=== PATIENT | male | born 1965 | race Caucasian/White ===

== ENCOUNTER 2016-04-02 08:06 | Inpatient (IN) | payer OTHER ==
[~2016-04-02] VITALS: Ht 177.8 cm; Wt 121.4 kg
[2016-04-02] VITALS (11 sets, daily range): BP systolic 111–133; BP diastolic 64–78; PULSE 47–65; RESP 10–20; O2SAT 95–99
--- NOTE | 2016-04-02 06:46 | PCM.HPANE ---
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 Admitting Provider: Attending Provider:Jesse Vann MD Primary Care Physician:Berny Abel MD Other Provider:Lynette Rodriguezingham Anesthesia Reason for Visit Left Knee Arthritis LEFT KNEE ARTHRITIS Ht/WT & BMI Height (Feet): 5 Height (Inches): 10 Weight (Kilograms): 122.47 Body Mass Index 38.00 Allergies Coded Allergies: No Known Allergies (Verified Allergy, Unknown, 04/19/14) Past Anesthesia History Anesthesia History: Denies:: Abnormal Airway, Anesthesia Reactions, Difficult Intubation, Fam Anesthesia Reaction, Fam Malignant Hypertherm, Malignant Hyperthermia Diabetes History Hx Diabetes?: No MRSA MRSA: No Medications Hypertension Medication: No Home Meds Incl Beta Car: No Reported Medications Multivitamin (Multi Vitamin Daily)1 Each Tablet1 Each PO DAILY 30 Days Ref 0 04/02/16 Simvastatin 20 Mg [id number] Mg PO HS Ref 0 03/29/16 Discontinued Reported Medications Simvastatin 20 Mg [id number] Mg PO HS 30 Days Ref 0 04/16/14 History HEENT History: Denies:: Abnormal Airway Cataracts Difficult Intubation Dysphagia Glaucoma Hearing Problem Sinus Problem TMJ Hx of Heart Problems?: Yes Cardiovascular History: Denies:: AICD Edema Heart Murmur Hypertension (hyperlipidemia) Irregular Heartbeat Pacemaker Peripheral Vascular Rheumatic Fever Thrombophlebitis Hx of Respiratory Problem?: No Respiratory History: Denies:: Asthma COPD Emphysema Oxygen Administration Pneumonia Tuberculosis Use of C-PAP Machine Use of Inhalers / NEBS Hx Neurologic Problems?: No Neurological History: Denies:: CVA Headaches Multiple Sclerosis Parkinson's Disease Seizures Hx of GI Problems?: No Gastrointestinal History: Positive for:: Rectal Bleeding (hx of rectal polyp) Denies:: Gall Bladder Disease Gastroesphageal Reflux Heartburn Hx of Problems?: No Genitourinary History: Denies:: Kidney Stones Urinary Tract Infection Male Hx: Denies:: Prostate Problems Skin History: Denies:: History Skin Disorders? Pressure Ulcers Hx Musculoskeletal Problems?: Yes Musculoskeletal History: Positive for:: Musculoskeletal Trauma (left knee current admission problem) Osteoarthritis Denies:: Back Injury Fibromyalgia Joint Replacement Hx of Psycho/Social Problems?: No Psycho Social History: Denies:: Anxiety Hx Depression Hx Surgeries?: Yes (arthroscopic left knee) Hx Any Other Health Problems?: Yes Other History: Denies:: Cancer Thyroid Disease History Blood Transfusions: Positive for:: Accept Blood Products? Denies:: Blood Transfusions Hx Diabetes: No Hx Alcohol Use: Yes (occasional)Hx Substance Use: No Smoking Status: Never Smoker Have You Smoked inLast 12 mo: No Stop/Bang S-Snoring: Do You Snore Loudly: No T-Tired: feel tired, fatigued: No O-Obsered: Observed not breath: No P-Blood Pressure: treated: No B- Body Mass Index > 35 kg/m2: Yes A- Age over 50: Yes N- Neck Large Circumference: No G- Gender Male: Yes DWAYNE Total Score: 3 DWAYNE Risk Assessment: Low Risk, <3 Yes Risk Assessment Category Category 1A: Patient has history of documented sleep apnea, and HAS NOT received any narcotic, sedative or anesthesia administration during this stay. Category 1B: Patient has history of documented sleep apnea, and HAS received any narcotic , sedative or anesthesia administration during this stay Category 2: Patient has SUSPECTED Obstructive Sleep Apnea, and HAS received any narcotic , sedative or anesthesia administration during this stay. Category 3: Patient has SUSPECTED Obstructive Sleep Apnea and HAS NOT received narcotic, sedative or anesthesia administration during this stay. Category 4: Outpatient in Procedural Areas with known sleep apnea or who screen positive for High Risk via the STOP/BANG questionnaire. Exam Exam General Appearance: Alert, Oriented X3, Cooperative, No Acute Distress HEENT/AIRWAY: MP 2 Lungs: Clear to Auscultation, Normal Air Movement Heart: Exam Unremarkable, Regular Rate/Rhythm, No Murmurs/Rubs/Gallops Plan Impression Patient chart reviewed, patient interviewed and anesthestic plan with risks, benefits, and alternatives discussed, and informed consent obtained. ASA Physical Status: ASA2 Mod Systemic Disease Anesthetic Plan: Regional Block, SAB Bene/Risks/Altern/Consents: Yes HP Complete Prior to Induction: Yes Dioni Cook MD Apr 02, 2016 06:46
[~2016-04-02 08:06] MED LIST: Bupivacaine Liposome 1.3% 20 mL Inj INFILTRATE SCH; CeFAZolin Inj 3 Gm/ D5W 50 mL Bag IV ONE; Lactated Ringer's 1,000 ML IV ONE; SIMV20TA4 PO; Vancomycin Inj 1,000 MG in IV Premix 1 EACH IV ONE
[2016-04-02] MEDS ORDERED: MULT-1018 PO (08:26)
[2016-04-02] MEDS ORDERED: TRANEXAMIC ACID IV ONE ×2 (09:35→09:45)
[2016-04-02] MEDS ORDERED: SODIUM CHLORIDE 0.9% IV ONE (09:45)
[2016-04-02] MEDS ORDERED: Gentamicin 40 mg/mL 2 mL Inj IRRIGATION ONE (11:53)
[2016-04-02] MEDS ORDERED: Bupivacaine-MPF 0.25%/EPI 30 mL Inj ARTICULAR ONE (11:54)
[2016-04-02] MEDS ORDERED: Bupivacaine Liposome 1.3% 20 mL Inj INFILTRATE ONE (11:55)
[2016-04-02] MEDS ORDERED: Lactated Ringer's 1,000 ML IV SCH (12:34)
[2016-04-02] MEDS ORDERED: Lactated Ringer's 500 ML IV PRN (12:34)
[2016-04-02] MEDS ORDERED: hydrALAZINE 20 mg/mL Inj IVPUSH PRN (12:35)
[2016-04-02] MEDS ORDERED: Dexamethasone 4 mg/mL Inj IVPUSH PRN (12:35)
[2016-04-02] MEDS ORDERED: fentaNYL-PF 50 mCg/mL 2 mL Inj IVPUSH PRN (12:35)
[2016-04-02] MEDS ORDERED: Labetalol 5 mg/mL 4 mL Inj IV PRN (12:35)
[2016-04-02] MEDS ORDERED: Phenylephrine 10,000 mCg/mL Inj IVPUSH PRN (12:35)
[2016-04-02] MEDS ORDERED: Atropine 0.4 mg/mL Inj IVPUSH PRN (12:35)
[2016-04-02] MEDS ORDERED: Ondansetron 2 mg/mL 2 mL Inj IVPUSH PRN (12:35)
[2016-04-02] MEDS ORDERED: HYDROmorphone 1 mg/mL Inj IVPUSH PRN (12:35)
[2016-04-02] MEDS ORDERED: MetoCLOpramide 5 mg/mL 2 mL Inj IVPUSH PRN (12:35)
[2016-04-02] MEDS ORDERED: EPHEDrine Sulfate 50 mg/mL Inj IVPUSH PRN (12:35)
[2016-04-02] MEDS ORDERED: fentaNYL-PF 50 mCg/mL 2 mL Inj ONE (13:24)
--- NOTE | 2016-04-02 13:35 | PCM.ANEP1 ---
Post Anesthesia Phase 1 PACU Phase 1 Assessment Vital Signs Vital Signs Date Time Temp Pulse Resp B/P Pulse Ox O2 Delivery O2 Flow Rate FiO2 04/02/16 13:30 50 15 116/69 98 Room Air 04/02/16 13:25 51 15 114/69 97 Room Air 04/02/16 13:21 15 98 04/02/16 13:19 36.4 51 10 114/65 97 Room Air 04/02/16 08:55 36.0 55 18 133/72 95 Room Air Anesthetic Administered: SAB Level of Alertness: Awake, talking BARRY's with Equal Strength: No Pain: No Pain Scale Score: 0 Oxygen Delivery: Room Air Lungs: Clear to Auscultation, Normal Air Movement Dermatome Level: T12 (Symphysis Pubis) Dioni Cook MD Apr 02, 2016 13:35
--- NOTE | 2016-04-02 13:46 | DRSVH ---
PROCEDURE: X-RAY LEFT KNEE, ONE OR TWO VIEWS ([id number]) INDICATIONS: CHECK ALIGNMENT TECHNIQUE: 2 view(s) of the knee acquired. COMPARISON: None. FINDINGS: Bones: Patient is status post left knee joint arthroplasty. Hardware components are in expected pos itions. Visualized bony structures are intact. Soft tissues: Overlying postoperative changes are noted. IMPRESSION: Expected postsurgical change for left knee arthroplasty. Dictated by: Fernanda Griffin MD, PhD on 04/02/2016 at 13:44 Approved by: Fernanda Griffin MD, PhD on 04/02/2016 at 13:44
[2016-04-02] MEDS ORDERED: Lactated Ringer's 1,000 ML IV ONE (13:48)
--- NOTE | 2016-04-02 14:03 | NUR ---
Arrived on Unit Patient arrived on floor from PACU in bed in stable condition. A&Ox3. RA. VSS. Dressing CDI. HemoVac clamped until 1800. Patient reported 6/10 knee pain. 10 mg Oxycodone and 50 mg of Vistaril given. 30 mg of Toradol given with patient increasing to 8/10. Denies nausea. Patient orientated to call light, bed, and telephone. at bedside. Call light and tray table within reach. Will continue to monitor patient hourly.
--- NOTE | 2016-04-02 14:05 | PCM.ANEP2 ---
Post Anesthesia Evaluation ASA/CMS Post Anesthesia VS in Patient's Normal Range?: Yes Resp Stable; Airway Patent?: Yes CV Function & Hydration Stable: Yes Mental Status Recovered?: Yes Pain control Satisfactory?: Yes N/V Control Satisfactory?: Yes Dioni Cook MD Apr 02, 2016 14:05
[2016-04-02] MEDS ORDERED: HYDROcodone-APAP 5-325 mg Tablet PO PRN (14:25)
[2016-04-02] MEDS ORDERED: Ondansetron 2 mg/mL 2 mL Inj IV PRN (14:25)
[2016-04-02] MEDS ORDERED: Sodium Biphos-Phos 133 mL Enema RECTAL PRN (14:25)
[2016-04-02] MEDS ORDERED: LORazepam 0.5 mg Tablet PO PRN (14:25)
[2016-04-02] MEDS ORDERED: Magnesium Hydroxide 10 mL Oral Concentration PO PRN (14:25)
[2016-04-02] MEDS ORDERED: Ondansetron 8 mg ODT Tablet PO PRN (14:25)
[2016-04-02] MEDS ORDERED: MetoCLOpramide 5 mg/mL 2 mL Inj IV PRN (14:25)
[2016-04-02] MEDS ORDERED: diphenhydrAMINE 25 mg Capsule PO PRN (14:25)
[2016-04-02] MEDS ORDERED: Alum-Mag Hydrox-Simeth 30 mL Suspension PO PRN (14:25)
[2016-04-02] MEDS: hydrOXYzine Pamoate 25 mg Capsule PO PRN ×2 (14:35→19:14)
[2016-04-02] MEDS: Lactated Ringer's 1,000 ML IV SCH (14:37)
--- NOTE | 2016-04-02 16:33 | OP ---
[address] [address] OPERATIVE REPORT PATIENT: JEREMIAH PEREZ : 1965 MR#: [id number] ADMIT: 04/02/2016 JOB ID: [id number] DATE OF SURGERY: 04/02/2016 PREOPERATIVE DIAGNOSIS(ES): Severe arthritis, left knee. POSTOPERATIVE DIAGNOSIS(ES): Severe arthritis, left knee. PROCEDURE: Total knee arthroplasty. SURGEON: Jesse Vann MD. MECHANICAL TEST ENGINEER: Roma Kraus PA-C. COMPLICATIONS: None. INDICATIONS: This gentleman has had severe progressive osteoarthritis symptoms uncontrolled by conservative treatment techniques. He elects for total knee arthroplasty. He understands and accepts the potential for risks and complications which include but are not limited to infection, thromboembolic, neurovascular events, as well as potential for implant failure. Understanding these, he wishes to proceed. Phlebotomist Supervisor/Instructor was required due to the major complexity of the operation. PROCEDURE IN DETAIL: The patient was prepped and draped in the usual sterile fashion. An anteromedial approach was made to the knee. Dissection was carried down. Medial patellar osteophyte was removed and the patella was examined and was noted to be in excellent condition. Based on the [place] data, the patient's young age and potential for patellar complications, it was elected not to resurface the patella. A drill hole was placed in the distal femur and the 5 degree valgus distal femoral cut was made. Bone fragments were removed. The tibia was cut with the extramedullary tool. All meniscal tissue and osteophytes were removed from the knee. The femoral component was sized to a D chamfer cutting block, fixed in appropriate position of rotation and drill holes and chamfer cuts were made. The tibia was sized to a G tibia. Trial reductions were performed and a 10 mm polyethylene was chosen. Excellent tracking. Soft tissue balance was achieved. Excellent tracking was achieved with a medial congruent polyethylene which was chosen as the final polyethylene. Tibia was prepared in standard fashion. Careful assessment of the knee removing all debris and osteophytes followed by pressurized lavage followed by cementation of the components. Excess cement was removed during the curing process. Cut surfaces had been injected with Exparel. The knee was lavaged with sterile irrigant and then lavaged with a dilute Betadine solution. The patellar articular cartilage was protected from this. Pressurized cementation of the components ensued. Excess cement was removed during the curing process. Final construct assembled and polyethylene snapped securely into place. Knee held in full while the cement cured. Excess cement removed from the knee. Wounds irrigated with sterile irrigant. Deep Hemovac drain left. Tourniquet let down. Hemostasis achieved. Deep closure with #2 Quill deep followed by 2-0 Vicryl, 3-0, and a 4-0 intracuticular stitch. Patient tolerated the procedure well. There were no complications.
[2016-04-02] MEDS: CeFAZolin Inj 3 GM in Dextrose 5% 50 ML IV SCH (20:04)
[2016-04-02] MEDS ORDERED: Vancomycin Inj 1,750 MG in Dextrose 5% 500 ML IV ONE (23:00)
[2016-04-03 00:14] VITALS: BP 123/66; PULSE 72; RESP 20; O2SAT 93
[2016-04-03] MEDS: hydrOXYzine Pamoate 25 mg Capsule PO PRN ×4 (01:42→20:50)
[2016-04-03] MEDS: CeFAZolin Inj 3 GM in Dextrose 5% 50 ML IV SCH (03:31)
[2016-04-03 03:58] VITALS: BP 131/74; PULSE 62; RESP 20; O2SAT 95
[2016-04-03 04:22] VITALS: BP 107/64; PULSE 80; RESP 20; O2SAT 94
--- NOTE | 2016-04-03 04:45 | NUR ---
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 Had OXycodone early in shift. Prophalactic for LE pain. Second dose of IV routine Toradol ordered and given w/ excellent effect. Given only 1/2 dose of oxycodone in the early hours. Third and last dose of Toradol given. No pain at this time. ICE to extremity for shift. Good cms to LLE. No numbness or tingling per pt. Hemovac putting out small amt of SS fluid. Slept all of night. Continue current care plan.
[2016-04-03 05:59] LABS: BASOPHILS % (AUTO) 0.1 % (0-3); EOSINOPHILS % (AUTO) 1.1 % (0-5); MONOCYTES % (AUTO) 9.9 % (4-12); Mean Corpuscular Hemoglobin 29.4 pg (27.0-35.0); NEUTROPHILS % (AUTO) 74.5 % (40-74); Platelet Count 182 bil/L (150-400)
--- NOTE | 2016-04-03 06:33 | PCM.PNORTH ---
Subjective Date of Service: Apr 03, 2016 Visit Information: Reason for Visit Left Knee Arthritis Surgery/Surgery Date L TKA 04/02/16 Post-Op Day # Date of Admission: Apr 02, 2016 at 13:32 Hospital Day # Subjective Palpation awake and alert and sitting up in bed. No complaints of pain at this time. Discussed usual course of events with patient and timing regarding discharge to home on her before postop day 3. Encouraged patient to participate fully with physical therapy. Patient indicates that he has arranged outpatient physical therapy to begin on 04/09/2016. Patient takes no chronic pain medications prior to this seizure by his report. Patient indicates he is otherwise healthy and working prior to the surgery. Postop General: No Complaints, No Shortness of Breath, No Chest Pain, Good Appetite Pain Management: PO Objective Exam Objective Orientation: Alert and oriented 3 and pleasant. Dressing: Interoperative dressing clean dry and intact. Wound: Wound not observed today. Compartments: Calf and thigh are soft and nontender. Mobility/sensation: Toe wiggle and sensation are intact to left lower extremity distally. Abduction wedge: None CARMEN hose: None Huddleston: In place and working Drain: In place and working Gait: No gait yet with physical therapy as of this time. Vital Signs and I/O Vital Sign - Last Date Time Temp Pulse Resp B/P Pulse Ox O2 Delivery O2 Flow Rate FiO2 04/03/16 04:22 37.7 80 20 107/64 94 Room Air Intake and Output 04/02/16 04/02/16 04/03/16 Cumulative From/Thru 15:00 23:00 07:00 03/29/16 11:42 - 04/03/16 06:09 Intake Total 1420 ml 800 ml 1619 ml 3839 ml Output Total 950 ml 430 ml 1420 ml 2800 ml Balance 470 ml 370 ml 199 ml 1039 ml Intake Oral 800 ml 400 ml 1200 ml IV Total 1420 ml 1219 ml 2639 ml Output Urine Total 900 ml 400 ml 1300 ml 2600 ml Drainage Total 30 ml 120 ml 150 ml Estimated Blood Loss 50 ml 50 ml Lab & Micro Results Laboratory Tests Test 04/03/16 05:40 White Blood Count 7.0th/mm3 (3.8-10.1) Red Blood Count 4.46mil/mm3 (4.40-5.80) Hemoglobin 13.1g/dL (13.8-17.2) Hematocrit 38.8% (41.0-50.0) Mean Corpuscular Volume 87.0fL (81-100) Mean Corpuscular Hemoglobin 29.4pg (27.0-35.0) Mean Corpuscular Hemoglobin Concent 33.8% (32.0-37.0) Red Cell Distribution Width 12.8% (12.3-15.4) Platelet Count 182bil/L (150-400) Neutrophils (%) (Auto) 74.5% (40-74) Lymphocytes (%) (Auto) 14.1% (14-46) Monocytes (%) (Auto) 9.9% (4-12) Eosinophils (%) (Auto) 1.1% (0-5) Basophils (%) (Auto) 0.1% (0-3) Result Diagram: 04/03/16 0540 General Appearance: Alert, Oriented X3, Cooperative, No Acute Distress Extremities: No Compartment Syndrom Noted, Thigh & Calf Soft/Nontender Postop Sensory Motor: Distal Motor Intact, Movement in Toes, Distal Sensation Intact SURGICAL WOUND : Drain Location Body Site: Knee Wound Drainage Type: Hemovac Activity: Activity per PT, Ambulate with PT (weightbearing as tolerated in the left lower extremity using front wheeled walker.) Catheters: Urethral 2 Way Huddleston Assessment & Plan Impression Patient is a otherwise healthy 50-year-old male who has been working prior to this hospitalization for an elective left total knee. Anticipate patient will perform well physical therapy and achieved discharge on her before postop day 3. Problems: Plan Postop day # 1 from left total knee arthroplasty performed on 04/02/[address] Jesse Vann. Weight bearing status: Weightbearing as tolerated on left lower extremity. Mobility aid: Front wheeled walker Immobilization: None Precautions: No additional precautions Physical therapy: Continue formal physical therapy for mobility, gait and safety. Please evaluate patient's 4 wheeled walker for efficacy. I have advised patient he should start with front wheeled walker initially. Outpatient physical therapy is arranged to begin on 04/09/2016. Pain control: Continue by mouth pain medication as needed. Please avoid IV pain medication. DVT prophylaxis: ASA 325 mg EC by mouth daily for DVT prophylaxis. Wound care: Keep wound dressing clean dry and intact. Infectious DZ: None Huddleston: Huddleston catheter in place. Please discontinue Huddleston catheter today on postop day 1. May weight toe after first PT session if necessary. Dressing: Interoperative dressing is clean dry and intact. This will be changed on postop day #2 Drain: Interoperative drain in place and working. Please discontinue at 24 hours postop. Abduction wedge: None CARMEN tijerina: Bilateral. Apply left lower extremity. After dressing change. Nursing communication: Please discontinue Huddleston today on postop day 1 and discontinue wound drain 24 hours postop. 2-week follow-up: Follow-up in 2 weeks at [facility] orthopedic clinic with mid-level provider on prearranged appointment for wound check and suture removal. 6-week follow-up: Follow-up in 6 weeks at [facility] orthopedic clinic with Dr. Jesse Vann with left two-view knee x-rays on arrival. Discharge plan: Anticipate discharge on a before postop day 3 to home with family has caregivers. VTE Prophylaxis: SCDs, CARMEN Tijerina, Other (ASA 325 mg EC by mouth daily for DVT prophylaxis.) Delbert Raymond PA-C Apr 03, 2016 06:33
[2016-04-03] MEDS: Lactated Ringer's 1,000 ML IV SCH ×2 (07:42→23:22)
[2016-04-03] MEDS ORDERED: Influenza (Adult) Vaccine 0.5 mL Syringe IM ONE (08:30)
[2016-04-03] MEDS: oxyCODONE-Acetamin 5-325 mg Tablet PO PRN ×3 (11:28→20:50)
[2016-04-03 14:03] VITALS: BP 140/74; PULSE 89; RESP 18; O2SAT 95
[2016-04-03 17:00] VITALS: BP 133/75; PULSE 79; O2SAT 94
--- NOTE | 2016-04-03 19:40 | NUR ---
Gonzalez, Hemovac Removal Gonzalez catheter and hemovac removed per orders. Patient voiding without difficulty post gonzalez removal. Some dry sanguinous drainage noted at hemovac insertion site when removing hemovac. Pressure applied to removal site, dressing replaced. Care is ongoing.
[2016-04-03 21:01] VITALS: BP 146/78; PULSE 92; RESP 18; O2SAT 93
[2016-04-04] MEDS: oxyCODONE-Acetamin 5-325 mg Tablet PO PRN ×3 (00:29→09:07)
[2016-04-04] MEDS: hydrOXYzine Pamoate 25 mg Capsule PO PRN ×3 (00:29→09:08)
--- NOTE | 2016-04-04 02:42 | NUR ---
Pain VSS and ORTHOS WNL.Pain controlled with PO analgesia.Up with SBA and FWW and moving well.Dressing CD&I.Sleeping soundly at this time and resting comfortably.Will cont. to monitor.
--- NOTE | 2016-04-04 06:12 | PCM.PNORTH ---
Subjective Date of Service: Apr 04, 2016 Visit Information: Reason for Visit Left Knee Arthritis Surgery/Surgery Date L TKA 04/02/16 Post-Op Day # Date of Admission: Apr 02, 2016 at 13:32 Hospital Day # Subjective [facility] patient sleeping this morning but easily awakened. No complaints of pain at this time. Discussed discharge available today and patient says he would like to go home. Dressing is changed his morning and patient is given a ABDs and netting. Patient says he does have his right available today in the form of his and she can pick him up whenever we get him ready to go. Postop General: No Complaints, No Shortness of Breath, No Chest Pain, Good Appetite Pain Management: PO Objective Exam Objective Orientation: Alert and oriented 3 and pleasant. Dressing: Interoperative dressing is changed to postoperative venous morning with ADD and netting. Wound: Surgical incision is in good condition with no drainage and Steri-Strips are in place. There is no focal swelling or erythema. Compartments: Thigh and calf are soft and nontender. Mobility/sensation: Toe wiggle and sensation are intact left lower extremity distally Abduction wedge: None CARMEN hose: CARMEN hose in place on right leg and will be applied to the left leg this morning. Huddleston: Absent Drain: Absent Gait: Gait 75-100 feet with physical therapy yesterday on 04/03/2016. Recommendation is for discharge to home with outpatient physical therapy. Vital Signs and I/O Vital Sign - Last Date Time Temp Pulse Resp B/P Pulse Ox O2 Delivery O2 Flow Rate FiO2 04/03/16 21:01 36.7 92 18 146/78 93 Room Air Intake and Output 04/03/16 04/03/16 04/04/16 Cumulative From/Thru 15:00 23:00 07:00 03/29/16 11:42 - 04/04/16 00:10 Intake Total 1186 ml 5025 ml Output Total 1600 ml 4400 ml Balance -414 ml 625 ml Intake Oral 1186 ml 2386 ml IV Total 2639 ml Output Urine Total 1600 ml 4200 ml Drainage Total 150 ml Estimated Blood Loss 50 ml Result Diagram: 04/03/16 0540 General Appearance: Alert, Oriented X3, Cooperative, No Acute Distress Extremities: No Compartment Syndrom Noted, Thigh & Calf Soft/Nontender Postop Sensory Motor: Distal Motor Intact, Movement in Toes, Distal Sensation Intact SURGICAL WOUND : Drain Location Body Site: Knee Wound Drainage Type: Hemovac Activity: Activity per PT, Ambulate with PT (weightbearing as tolerated in the left lower extremity using front wheeled walker.) Catheters: None Assessment & Plan Impression Patient has performed well with formal physical therapy and is ready for discharge to home after one additional therapy sessions morning. Problems: Plan Postop day # 2 from left total knee arthroplasty performed on 04/02/[address] Jesse Vann. Weight bearing status: Weightbearing as tolerated on left lower extremity. Mobility aid: Front wheeled walker Immobilization: None Precautions: No additional precautions Physical therapy: Continue formal physical therapy for mobility, gait and safety. I have advised patient he should start with front wheeled walker initially. Outpatient physical therapy is arranged to begin on 04/09/2016. Pain control: Continue oral pain control with Percocet 5 and Vistaril. DVT prophylaxis: ASA 325 mg EC by mouth twice a day 6 weeks for DVT prophylaxis. Wound care: Keep wound dressing clean dry and intact until seen in office in 2 weeks. Patient may shower but wound should be kept clean and dry. Infectious DZ: None Huddleston: Absent Dressing: Interoperative dressing is clean dry and intact. Interoperative dressing is changed to postop dressing this morning with ABD and fishnet. Drain: Absent Abduction wedge: None CARMEN hose: Right leg CARMEN hose in place. Nursing please add left leg CARMEN hose today. Nursing communication: Nursing please add left leg CARMEN hose today. 2-week follow-up: Follow-up in 2 weeks at [facility] orthopedic clinic with mid-level provider on prearranged appointment for wound check and suture removal. 6-week follow-up: Follow-up in 6 weeks at [facility] orthopedic clinic with Dr. Jesse Vann with left two-view knee x-rays on arrival. Discharge plan: Discharge patient to home today with spouse as caregiver on . VTE Prophylaxis: SCDs, CARMEN Hose, Other (ASA 325 mg EC by mouth twice a day 6 weeks for DVT prophylaxis.) Delbert Raymond PA-C Apr 04, 2016 06:11
--- NOTE | 2016-04-04 06:14 | PCM.DIOPOR ---
OP Ortho Discharge Instruction Dates of Hospitalization Date of Discharge: Apr 04, 2016 Providers Admitting Physician: Jesse Vann MD Primary Care Physician: Berny Abel MD Attending Physician: Jesse Vann MD Diagnosis at Time of Discharge Post operative diagnosis Left knee osteoarthritis severe Diet Discharge Diet: No restrictions Activity Activity-General: Try not to overdue, Be up and about, Balance rest and activity, Ice incision 3-5 time/day for 20min, Activity as pain allows, Activity as energy allows Left Lower Extremity: Weight Bearing as tolerated Discharge Assist Device: Front Wheeled Walker Dressing and Incisional Care Dressing Care: Keep dressing clean, dry & intact, Change soiled dressing Hygiene: May shower (patient may shower but wound and dressing should be kept clean and dry until seen in office in 2 weeks.), DO NOT soak incision under water, NO bathtub, hot tub or whirlpool Additional Instructions Discharge Instructions Postop day # 2 from left total knee arthroplasty performed on 04/02/[address] Jesse Vann. Weight bearing status: Weightbearing as tolerated on left lower extremity. Mobility aid: Front wheeled walker Immobilization: None Precautions: No additional precautions Physical therapy: Continue formal physical therapy for mobility, gait and safety. I have advised patient he should start with front wheeled walker initially. Outpatient physical therapy is arranged to begin on 04/09/2016. Pain control: Continue oral pain control with Percocet 5 and Vistaril. DVT prophylaxis: ASA 325 mg EC by mouth twice a day 6 weeks for DVT prophylaxis. Wound care: Keep wound dressing clean dry and intact until seen in office in 2 weeks. Patient may shower but wound should be kept clean and dry. Infectious DZ: None Huddleston: Absent Dressing: Interoperative dressing is clean dry and intact. Interoperative dressing is changed to postop dressing this morning with ABD and fishnet. Drain: Absent Abduction wedge: None CARMEN hose: Right leg CARMEN hose in place. Nursing please add left leg CARMEN hose today. Nursing communication: Nursing please add left leg CARMEN hose today. 2-week follow-up: Follow-up in 2 weeks at [facility] orthopedic clinic with mid-level provider on prearranged appointment for wound check and suture removal. 6-week follow-up: Follow-up in 6 weeks at [facility] orthopedic clinic with Dr. Jesse Vann with left two-view knee x-rays on arrival. Discharge plan: Discharge patient to home today with spouse as caregiver on . Follow Up Plan Follow Up Plan Patient will follow up in 2 weeks, 6 weeks and 12 weeks postoperatively. Patient will follow up when necessary in the interim. Follow-up Provider (F9): Jesse Vann MD Mid-level Provider (F9): Delbert Raymond PA-C Follow-up appointment: Weeks (follow-up in 2 weeks at [facility] orthopedic clinic on prearranged appointment for wound check and suture removal.) Call your provider for: Fever, Chills, Shortness of breath, Vomitting, Drainage at incision Delbert Raymond PA-C Apr 04, 2016 06:14
[2016-04-04] MEDS ORDERED: OXYC1TAB24 PO (06:19)
[2016-04-04] MEDS ORDERED: DOCU-41 PO (06:19)
[2016-04-04] MEDS ORDERED: HYDR-3797 PO (06:19)
[2016-04-04] MEDS ORDERED: Aspirin-Expunged Drug, Do Not Renew! PO (06:19)
--- NOTE | 2016-04-04 06:22 | PCM.DC.ORT ---
Discharge Summary Date of Service: Apr 04, 2016 Date of Hospital Admission: Apr 02, 2016 at 13:32 Date of Surgery: Apr 02, 2016 Date of Discharge: Apr 04, 2016 Reason for Hospitalization: Severe left knee osteoarthritis Procedures Performed: Left total knee arthroplasty Hospital Course: Patient was admitted to the preoperative care unit on 04/02/2016 upon processing was taken to the operating room where his procedure was performed without incident. Patient was then awakened and taken to postoperative care unit and upon recovery from anesthesia was transferred to the orthopedic care unit where he participated well with formal physical therapy and received a recommendation for discharge to home with outpatient physical therapy and was subsequently discharged on 04/04/2016. Problems: (1) Osteoarthritis of right knee Status: Acute ICD Code: M17.9 Disposition: Discharge to home with spouse as caregiver Orthopedic Follow up Plan: In Two Weeks in my clinic (follow-up in [address] [facility] orthopedic clinic on prearranged appointment for wound check and suture removal with [facility] level provider.) Discharge Instructions: Postop day # 2 from left total knee arthroplasty performed on 04/02/[address] Jesse Vann. Weight bearing status: Weightbearing as tolerated on left lower extremity. Mobility aid: Front wheeled walker Immobilization: None Precautions: No additional precautions Physical therapy: Continue formal physical therapy for mobility, gait and safety. I have advised patient he should start with front wheeled walker initially. Outpatient physical therapy is arranged to begin on 04/09/2016. Pain control: Continue oral pain control with Percocet 5 and Vistaril. DVT prophylaxis: ASA 325 mg EC by mouth twice a day 6 weeks for DVT prophylaxis. Wound care: Keep wound dressing clean dry and intact until seen in office in 2 weeks. Patient may shower but wound should be kept clean and dry. Infectious DZ: None [place]: Absent Dressing: Interoperative dressing is clean dry and intact. Interoperative dressing is changed to postop dressing this morning with ABD and fishnet. Drain: Absent Abduction wedge: None CARMEN hose: Right leg CARMEN hose in place. Nursing please add left leg CARMEN hose today. Nursing communication: Nursing please add left leg CARMEN hose today. 2-week follow-up: Follow-up in [address] [facility] orthopedic [facility] with mid-level provider on prearranged appointment for wound check and suture removal. 6-week follow-up: Follow-up in [address] [facility] orthopedic clinic with Dr. Jesse Vann with left two-view knee x-rays on arrival. Discharge plan: Discharge patient to home today with spouse as caregiver on . Management Plan: Patient will be seen at 2 weeks, 6 weeks and 12 weeks postoperatively. Patient will be seen when necessary in the interim. ([Aspirin-Expunged Drug, Do Not Renew!]) 325 MG TABLET 325 MG PO BID Docusate Sodium (Colace) 100 Mg Capsule 100 MG PO BID Hydroxyzine Pamoate (HydrOXYzine Pamoate) 25 Mg Capsule 25-50 MG PO Q4-6H PRN PRN For Restlessness Multivitamin (Multi Vitamin Daily) 1 Each Tablet 1 EACH PO DAILY Simvastatin (Simvastatin) 20 Mg Tablet 20 MG PO HS oxyCODONE-Acetaminophen 5-325 mg (oxyCODONE-Acetaminophen 5-325 mg) 1 Each Tablet 1-2 TAB PO Q4-6H PRN PRN For Severe Pain Delbert Raymond PA-C Apr 04, 2016 06:22
[2016-04-04 06:24] VITALS: BP 125/70; PULSE 85; RESP 18; O2SAT 95
[2016-04-04 08:30] VITALS: BP 128/82; PULSE 58; RESP 15
--- NOTE | 2016-04-04 12:33 | NUR ---
Discharge pt discharged to home with . A&Ox3, BARRY, Pain present but tolerable, IV dc'd intact by SN with supervision, Care Notes and instructions provide don new medications, dc dx and s/sx to seek medical attention for, Hard copy scripts provided to pt, Pt in stable condition, Dressing CDI with add'l dressing provided, No unanswered questions/concerns at dc, All personal belongings in hand. Pt wheeled off unit to vehicle.
--- NOTE | 2016-04-04 15:43 | NUR ---
Social Work Continued Discharge Planning: Order for discharge acknowledged. SW met with patient at bedside. Patient is a 50 year old male admitted on 04/02/16 for Left knee arthritis. Patient insurance payer as [employer]. Patient PCP Berny Abel [phone]. Patient states being independent with needs. Patient pharmacy of choice as [facility] pharmacy. Patient has no previous HHC or SNF history. Patient has a walker for use at home. No anticipated discharge needs at this time. PLAN: Home with via POV, pending clinical course Brendan COPE
== END 2016-04-04 12:08 | disposition home or self-care (01) | DRG 470 ==
LOC: SAS 08:06 → OSC 13:32
PROVIDERS: ADMIT Orthopaedic Surgery; ATTEND Orthopaedic Surgery
PROC: 0SRD0J9 Replacement of Left Knee Joint with Synthetic Substitute, Cemented, Open Approach (ICD-10-PCS; principal; 2016-04-02 10:00)
DX: M17.12 Unilateral primary osteoarthritis, left knee (principal)